=== PATIENT | female | born 1930 | race Caucasian/White ===

== ENCOUNTER 2018-11-27 12:13 | Emergency (ER) | payer BC, MEDICARE ==
[~2018-11-27] VITALS: Ht 149.9 cm; Wt 42.0 kg
[~2018-11-27 12:13] MED LIST: ASPI-650; CALC600T; LISI10TA2; METO-53
[2018-11-27 12:40] VITALS: Ht 149.9 cm; Wt 42.0 kg
[2018-11-27] MEDS ORDERED: TRANEXAMIC ACID 1GM/100ML(PMX) 100 ML IV ONE (13:30)
[2018-11-27 14:45] VITALS: BP 125/74; PULSE 89; RESP 16
== END 2018-11-27 14:58 | disposition home or self-care (01) ==
LOC: E/R 12:13
DX: K13.79 Other lesions of oral mucosa (principal); I10 Essential (primary) hypertension; F17.210 Nicotine dependence, cigarettes, uncomplicated; Z79.82 Long term (current) use of aspirin
CPT/HCPCS: 36415; 80048; 85025; 85610; 85730; 96374